=== PATIENT | male | born 1940 | race American Indian/Alaskan Native ===

== ENCOUNTER 2016-10-10 13:00 | Outpatient (CLI) | payer MEDICARE | END 2016-10-10 13:01 | disposition home or self-care (01) | LOC: WOUND 13:00 | PROVIDERS: ATTEND Surgery | DX: L97.512 Non-pressure chronic ulcer of other part of right foot with fat layer exposed (principal); L89.893 Pressure ulcer of other site, stage 3; S24.103D Unspecified injury at T7-T10 level of thoracic spinal cord, subsequent encounter; G83.9 Paralytic syndrome, unspecified; Z87.891 Personal history of nicotine dependence; X58.XXXD Exposure to other specified factors, subsequent encounter | CPT/HCPCS: 99215; G0463 ==

== ENCOUNTER 2016-10-17 12:59 | Outpatient (CLI) | payer MEDICARE | END 2016-10-17 13:00 | disposition home or self-care (01) | LOC: WOUND 12:59 | PROVIDERS: ATTEND Surgery | DX: L89.893 Pressure ulcer of other site, stage 3 (principal); G82.50 Quadriplegia, unspecified; Z87.891 Personal history of nicotine dependence | CPT/HCPCS: 99214; G0463 ==

== ENCOUNTER 2016-10-24 12:47 | Outpatient (CLI) | payer MEDICARE | END 2016-10-24 12:48 | disposition home or self-care (01) | LOC: WOUND 12:47 | PROVIDERS: ATTEND Internal Medicine | DX: L89.893 Pressure ulcer of other site, stage 3 (principal); S24.103D Unspecified injury at T7-T10 level of thoracic spinal cord, subsequent encounter; G83.9 Paralytic syndrome, unspecified; Z87.891 Personal history of nicotine dependence; X58.XXXD Exposure to other specified factors, subsequent encounter ==

== ENCOUNTER 2016-10-31 11:29 | Outpatient (CLI) | payer MEDICARE ==
[2016-10-31] MEDS ORDERED: XYLOCAINE TOPICAL 2% ONE (11:49)
[2016-10-31] MEDS ORDERED: XYLOCAINE TOPICAL 2% TP ONE (14:58)
== END 2016-10-31 11:30 | disposition home or self-care (01) ==
LOC: WOUND 11:29
PROVIDERS: ATTEND Surgery
DX: L89.893 Pressure ulcer of other site, stage 3 (principal); Z87.891 Personal history of nicotine dependence

== ENCOUNTER 2016-11-07 10:26 | Outpatient (CLI) | payer MEDICARE | END 2016-11-07 10:27 | disposition home or self-care (01) | LOC: WOUND 10:26 | PROVIDERS: ATTEND Surgery | DX: L89.893 Pressure ulcer of other site, stage 3 (principal); Z87.891 Personal history of nicotine dependence ==

== ENCOUNTER 2016-11-14 11:22 | Outpatient (CLI) | payer MEDICARE ==
[2016-11-14] MEDS ORDERED: SILVER NITRATE TP ONE ×2 (12:05→13:37)
== END 2016-11-14 11:23 | disposition home or self-care (01) ==
LOC: WOUND 11:22
PROVIDERS: ATTEND Surgery
DX: S24.103D Unspecified injury at T7-T10 level of thoracic spinal cord, subsequent encounter (principal); L97.511 Non-pressure chronic ulcer of other part of right foot limited to breakdown of skin; L89.013 Pressure ulcer of right elbow, stage 3; L89.892 Pressure ulcer of other site, stage 2; Z87.891 Personal history of nicotine dependence; X58.XXXD Exposure to other specified factors, subsequent encounter

== ENCOUNTER 2016-11-21 09:59 | Outpatient (CLI) | payer MEDICARE ==
[2016-11-21] MEDS ORDERED: SILVER NITRATE TP ONE (15:30)
== END 2016-11-21 10:00 | disposition home or self-care (01) ==
LOC: WOUND 09:59
PROVIDERS: ATTEND Surgery
DX: L97.512 Non-pressure chronic ulcer of other part of right foot with fat layer exposed (principal); L89.893 Pressure ulcer of other site, stage 3; Z87.891 Personal history of nicotine dependence

== ENCOUNTER 2016-11-28 09:49 | Outpatient (CLI) | payer MEDICARE | END 2016-11-28 09:50 | disposition home or self-care (01) | LOC: WOUND 09:49 | PROVIDERS: ATTEND Internal Medicine | DX: L89.893 Pressure ulcer of other site, stage 3 (principal); L89.892 Pressure ulcer of other site, stage 2; G83.9 Paralytic syndrome, unspecified; Z87.891 Personal history of nicotine dependence ==

== ENCOUNTER 2016-12-02 20:47 | Emergency (ER) | payer MEDICARE ==
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
--- NOTE | 2016-12-02 23:55 | Cat Scan Report ---
FINAL REPORT PROCEDURE: CT NECK WO CON TECHNIQUE: Computerized tomography of the soft tissue neck was performed without contrast material. This study is performed without intravascular contrast material and its sensitivity for pathology, including neoplasms, inflammation, abscess, free fluid, thrombosis, and arterial dissection, is reduced compared with a contrast enhanced study. HISTORY: ? foreign body COMPARISON: No prior studies are available for comparison. FINDINGS: Skull base: Visualized portions are normal. Paranasal sinuses: Visualized portions are normal. Nasopharynx: Normal. Oral cavity: Normal. Epiglottis/vallecula: The level of the epiglottis there is area of mixed attenuation in the posterior airway, a food bolus in this region is suspected. This does not cause complete occlusion of the airway. No other evidence of radiopacity within the airway. The epiglottis is normal. No soft tissue swelling is noted.. Larynx/pyriform sinuses: Normal. Thyroid gland: Normal. Lymph nodes: None enlarged. Salivary glands: Normal. Upper thorax: Normal. There has been previous surgery in the cervical spine posteriorly. There is significant spur formation off the posterior vertebral bodies from the C3 through the C7 vertebral levels. Significant spinal canal stenosis is identified at the C3-4, C4-5 and C5-6 levels. IMPRESSION: There is an area of mixed attenuation in the posterior airway in the hypopharynx at the level of the epiglottis. A fluid bolus in this region is suspected by history. This does not cause occlusion of the airway. There is no other evidence of radiopacity within the airway. The epiglottis is normal. This fluid bolus is at the upper opening of the esophagus but is not completely within the esophagus on this study. Continued monitoring of this patient for possible resolution or airway complication would be appropriate. The remainder of the study is normal for age. There are significant degenerative changes of the cervical spine with significant spinal canal stenosis at the C 3- 4, C4-5 and C5-6 levels. The above results are discussed with the patient's ER physician at the time of dictation 2246 central standard time on 12/02/2016
--- NOTE | 2016-12-03 00:02 | Cat Scan Report ---
FINAL REPORT PROCEDURE: CT CHEST WO CON TECHNIQUE: Computerized axial tomography of the chest was performed without contrast material. This study is performed without intravenous contrast and the sensitivity for pathology, including neoplasms, adenopathy, abscess, pulmonary embolism and aortic dissection, is reduced. HISTORY: ? foreign body, chills ? pna COMPARISON: No prior studies are available for comparison. TECHNICAL QUALITY: Satisfactory. FINDINGS: Heart and pericardium: Normal. Thoracic aorta: Minimal atherosclerosis of the aorta. No aneurysm.. Pulmonary vasculature: Normal. Lymph nodes: No enlarged thoracic lymph nodes. Lungs: Mild COPD with slight fibrosis in the lower lungs. No consolidation, effusion or pneumothorax. The central airway is patent.. Pleural space: No effusion, thickening, or pneumothorax. Musculoskeletal structures: No significant abnormality. Upper abdominal structures: Slight thinning of the renal cortices bilaterally. Suspected cysts in the renal cortex, this is not fully evaluated on this study.. IMPRESSION: Mild COPD with fibrosis. No consolidation, effusion or pneumothorax..
[2016-12-03 00:16] LABS: Basophils % (Auto) 0.3 % (0.0-1.8); Eosinophils % (Auto) 0.4 % (0.0-4.3); Hematocrit 41.7 % (35.5-45.6); Hemoglobin 13.5 gm/dl (11.8-15.2); Mean Corpuscular HGB Conc 32 % (32-34); Mean Corpuscular Hemoglobin 29 pg (28-32); Mean Corpuscular Volume 88 fl (84-94); Platelet Count 295 K/mm3 (140-440); Red Blood Count 4.72 M/mm3 (3.65-5.03); Red Cell Distribution Width 14.1 % (13.2-15.2); White Blood Count 12.7 K/mm3 (4.5-11.0)
[2016-12-03 00:23] LABS: Anion Gap 18 mmol/L; BUN/Creatinine Ratio 22.85; Blood Urea Nitrogen 16 mg/dL (9-20); Calcium 9.1 mg/dL (8.4-10.2); Carbon Dioxide 22 mmol/L (22-30); Chloride 107.5 mmol/L (98-107); Creatine Kinase 112 units/L (55-170); Glucose 92 mg/dL (75-100); Potassium 4.6 mmol/L (3.6-5.0); Sodium 143 mmol/L (137-145)
[2016-12-03 00:47] VITALS: BP 173/73
[2016-12-03 01:16] LABS: Bacteria,Urine 1+ /HPF (Negative); Bilirubin,Urine NEG (Negative); Blood,Urine NEG (Negative); Ketones,Urine NEG (Negative); Leukocyte Esterase,Urine LG (Negative); Mucus,Urine FEW /HPF; Nitrite,Urine NEG (Negative); Protein,Urine <15 mg/dL mg/dL (Negative); Urobilinogen,Urine < 2.0 mg/dL (<2.0)
== END 2016-12-03 01:40 | disposition short-term general hospital (02) ==
LOC: ED 20:47
DX: T18.8XXA Foreign body in other parts of alimentary tract, initial encounter (principal); Z87.891 Personal history of nicotine dependence; Z88.2 Allergy status to sulfonamides; Z88.8 Allergy status to other drugs, medicaments and biological substances; X58.XXXA Exposure to other specified factors, initial encounter; Y93.89 Activity, other specified; Y99.8 Other external cause status; Y92.89 Other specified places as the place of occurrence of the external cause
CPT/HCPCS: 36415; 70490; 71250; 80048; 81001; 82550; 85025; 87086

== ENCOUNTER 2016-12-05 11:10 | Outpatient (CLI) | payer MEDICARE ==
[2016-12-05] MEDS ORDERED: SILVER NITRATE TP ONE ×2 (12:08→16:00)
== END 2016-12-05 11:11 | disposition home or self-care (01) ==
LOC: WOUND 11:10
PROVIDERS: ATTEND Surgery
DX: L89.893 Pressure ulcer of other site, stage 3 (principal); L89.892 Pressure ulcer of other site, stage 2; Z87.891 Personal history of nicotine dependence

== ENCOUNTER 2016-12-26 10:37 | Outpatient (CLI) | payer MEDICARE | END 2016-12-26 10:38 | disposition home or self-care (01) | LOC: WOUND 10:37 | PROVIDERS: ATTEND Surgery | DX: L89.893 Pressure ulcer of other site, stage 3 (principal); L97.512 Non-pressure chronic ulcer of other part of right foot with fat layer exposed; S24.103D Unspecified injury at T7-T10 level of thoracic spinal cord, subsequent encounter; Z87.891 Personal history of nicotine dependence; X58.XXXD Exposure to other specified factors, subsequent encounter ==

== ENCOUNTER 2017-01-09 11:25 | Outpatient (CLI) | payer MEDICARE | END 2017-01-09 11:26 | disposition home or self-care (01) | LOC: WOUND 11:25 | PROVIDERS: ATTEND Surgery | DX: L97.512 Non-pressure chronic ulcer of other part of right foot with fat layer exposed (principal); L89.893 Pressure ulcer of other site, stage 3; Z87.891 Personal history of nicotine dependence ==

== ENCOUNTER 2017-01-23 11:02 | Outpatient (CLI) | payer MEDICARE | END 2017-01-23 11:03 | disposition home or self-care (01) | LOC: WOUND 11:02 | PROVIDERS: ATTEND Surgery | DX: L89.893 Pressure ulcer of other site, stage 3 (principal); L97.512 Non-pressure chronic ulcer of other part of right foot with fat layer exposed; Z87.891 Personal history of nicotine dependence ==

== ENCOUNTER 2017-01-23 11:59 | Outpatient (CLI) | payer MEDICARE ==
--- NOTE | 2017-01-23 12:53 | XRay Report ---
Right foot: Wound. The bones are generally demineralized. The joints appear generally aligned. The fourth MP joint is not well-visualized and could be narrowed. No arthritic or destructive bone change is identified. The lateral and dorsal soft tissues appear to be mildly edematous. There is a bandage and possible soft tissue gas lateral to the proximal first phalanx. No foreign body noted. Impressions: 1. First digit ulcer/wound. 2. Osteoporosis with no evidence of osteomyelitis.
== END 2017-01-23 12:00 | disposition home or self-care (01) ==
LOC: XRAY 11:59
PROVIDERS: ATTEND Surgery
DX: L97.512 Non-pressure chronic ulcer of other part of right foot with fat layer exposed (principal); M81.0 Age-related osteoporosis without current pathological fracture; Z87.891 Personal history of nicotine dependence

== ENCOUNTER 2017-01-30 10:46 | Outpatient (CLI) | payer MEDICARE ==
[2017-01-30] MEDS ORDERED: SILVER NITRATE TP ONE ×2 (11:19→11:22)
== END 2017-01-30 10:47 | disposition home or self-care (01) ==
LOC: WOUND 10:46
PROVIDERS: ATTEND Surgery
DX: L89.893 Pressure ulcer of other site, stage 3 (principal); L97.512 Non-pressure chronic ulcer of other part of right foot with fat layer exposed; Z87.891 Personal history of nicotine dependence
CPT/HCPCS: 17250

== ENCOUNTER 2017-02-06 11:00 | Outpatient (CLI) | payer MEDICARE ==
[2017-02-06] MEDS ORDERED: SILVER NITRATE TP ONE ×2 (11:27→12:33)
== END 2017-02-06 11:01 | disposition home or self-care (01) ==
LOC: WOUND 11:00
PROVIDERS: ATTEND Surgery
DX: L97.512 Non-pressure chronic ulcer of other part of right foot with fat layer exposed (principal); L89.893 Pressure ulcer of other site, stage 3; G82.50 Quadriplegia, unspecified; Z87.891 Personal history of nicotine dependence
CPT/HCPCS: 17250; G0463

== ENCOUNTER 2017-02-13 11:01 | Outpatient (CLI) | payer MEDICARE | END 2017-02-13 11:02 | disposition home or self-care (01) | LOC: WOUND 11:01 | PROVIDERS: ATTEND Surgery | DX: L89.893 Pressure ulcer of other site, stage 3 (principal); G82.50 Quadriplegia, unspecified; Z87.891 Personal history of nicotine dependence | CPT/HCPCS: 99214; G0463 ==

== ENCOUNTER 2017-02-20 13:05 | Outpatient (CLI) | payer MEDICARE ==
[~2017-02-20 13:05] MED LIST: NACL ONE
== END 2017-02-20 13:06 | disposition home or self-care (01) ==
LOC: WOUND 13:05
PROVIDERS: ATTEND Surgery
DX: L89.893 Pressure ulcer of other site, stage 3 (principal); L97.512 Non-pressure chronic ulcer of other part of right foot with fat layer exposed; G82.50 Quadriplegia, unspecified; Z87.891 Personal history of nicotine dependence
CPT/HCPCS: 99214; G0463

== ENCOUNTER 2017-02-27 11:29 | Outpatient (CLI) | payer MEDICARE | END 2017-02-27 11:30 | disposition home or self-care (01) | LOC: WOUND 11:29 | PROVIDERS: ATTEND Surgery | DX: L97.512 Non-pressure chronic ulcer of other part of right foot with fat layer exposed (principal); L89.892 Pressure ulcer of other site, stage 2; M86.671 Other chronic osteomyelitis, right ankle and foot; Z87.891 Personal history of nicotine dependence ==

== ENCOUNTER 2017-03-05 10:43 | Outpatient (CLI) | payer MEDICARE ==
--- NOTE | 2017-03-05 11:24 | XRay Report ---
AP and lateral chest: Osteomyelitis. Left hemidiaphragm is slightly elevated. The lungs are clear. The heart is normal in size. No vascular congestion. The aorta is minimally tortuous. No significant bone pathology identified. Impression: No significant pathology identified.
== END 2017-03-05 10:44 | disposition home or self-care (01) ==
LOC: XRAY 10:43
PROVIDERS: ATTEND Surgery
DX: M86.8X8 Other osteomyelitis, other site (principal); J98.6 Disorders of diaphragm; Q25.46 Tortuous aortic arch
CPT/HCPCS: 71020

== ENCOUNTER 2017-03-06 09:27 | Outpatient (CLI) | payer MEDICARE ==
[2017-03-06] MEDS ORDERED: XYLOCAINE TOPICAL 2% ONE (09:58)
[2017-03-06] MEDS ORDERED: XYLOCAINE TOPICAL 2% TP ONE (10:12)
[2017-03-06] MEDS ORDERED: SILVER NITRATE TP ONE (10:51)
== END 2017-03-06 09:28 | disposition home or self-care (01) ==
LOC: WOUND 09:27
PROVIDERS: ATTEND Surgery
DX: L97.512 Non-pressure chronic ulcer of other part of right foot with fat layer exposed (principal); L97.822 Non-pressure chronic ulcer of other part of left lower leg with fat layer exposed; M86.671 Other chronic osteomyelitis, right ankle and foot; L89.893 Pressure ulcer of other site, stage 3; G82.50 Quadriplegia, unspecified; Z87.891 Personal history of nicotine dependence

== ENCOUNTER 2017-03-11 10:15 | Outpatient (CLI) | payer MEDICARE | END 2017-03-11 10:16 | disposition home or self-care (01) | LOC: WOUND 10:15 | PROVIDERS: ATTEND Internal Medicine | DX: L97.512 Non-pressure chronic ulcer of other part of right foot with fat layer exposed (principal); L97.822 Non-pressure chronic ulcer of other part of left lower leg with fat layer exposed; M86.671 Other chronic osteomyelitis, right ankle and foot; L89.893 Pressure ulcer of other site, stage 3; G82.50 Quadriplegia, unspecified; Z87.891 Personal history of nicotine dependence | CPT/HCPCS: G0277 ×2; 99183 ==

== ENCOUNTER 2017-03-12 09:38 | Outpatient (CLI) | payer MEDICARE | END 2017-03-12 09:39 | disposition home or self-care (01) | LOC: WOUND 09:38 | PROVIDERS: ATTEND Surgery | DX: L97.512 Non-pressure chronic ulcer of other part of right foot with fat layer exposed (principal); S24.103D Unspecified injury at T7-T10 level of thoracic spinal cord, subsequent encounter; L97.822 Non-pressure chronic ulcer of other part of left lower leg with fat layer exposed; M86.671 Other chronic osteomyelitis, right ankle and foot; G82.50 Quadriplegia, unspecified; Z87.891 Personal history of nicotine dependence; L89.893 Pressure ulcer of other site, stage 3 | CPT/HCPCS: 82962; G0277; 99183 ==

== ENCOUNTER 2017-03-13 10:07 | Outpatient (CLI) | payer MEDICARE | END 2017-03-13 10:08 | disposition home or self-care (01) | LOC: WOUND 10:07 | PROVIDERS: ATTEND Surgery | DX: E11.621 Type 2 diabetes mellitus with foot ulcer (principal); L97.512 Non-pressure chronic ulcer of other part of right foot with fat layer exposed; S24.103D Unspecified injury at T7-T10 level of thoracic spinal cord, subsequent encounter; G82.50 Quadriplegia, unspecified; Z87.891 Personal history of nicotine dependence; Z86.73 Personal history of transient ischemic attack (TIA), and cerebral infarction without residual deficits; X58.XXXD Exposure to other specified factors, subsequent encounter | CPT/HCPCS: G0277 ×2; 99183 ==

== ENCOUNTER 2017-03-15 10:12 | Outpatient (CLI) | payer MEDICARE | END 2017-03-15 10:13 | disposition home or self-care (01) | LOC: WOUND 10:12 | PROVIDERS: ATTEND Podiatrist | DX: E11.621 Type 2 diabetes mellitus with foot ulcer (principal); L97.512 Non-pressure chronic ulcer of other part of right foot with fat layer exposed; S24.103D Unspecified injury at T7-T10 level of thoracic spinal cord, subsequent encounter; G82.50 Quadriplegia, unspecified; Z87.891 Personal history of nicotine dependence; Z86.73 Personal history of transient ischemic attack (TIA), and cerebral infarction without residual deficits; X58.XXXD Exposure to other specified factors, subsequent encounter | CPT/HCPCS: G0277 ×2; 99183 ==

== ENCOUNTER 2017-03-18 10:07 | Outpatient (CLI) | payer MEDICARE | END 2017-03-18 10:08 | disposition home or self-care (01) | LOC: WOUND 10:07 | PROVIDERS: ATTEND Internal Medicine | DX: E11.621 Type 2 diabetes mellitus with foot ulcer (principal); L97.512 Non-pressure chronic ulcer of other part of right foot with fat layer exposed; S24.103D Unspecified injury at T7-T10 level of thoracic spinal cord, subsequent encounter; G82.50 Quadriplegia, unspecified; Z87.891 Personal history of nicotine dependence; Z86.73 Personal history of transient ischemic attack (TIA), and cerebral infarction without residual deficits; X58.XXXD Exposure to other specified factors, subsequent encounter | CPT/HCPCS: G0277 ×2; 99183 ==

== ENCOUNTER 2017-03-19 09:53 | Outpatient (CLI) | payer MEDICARE | END 2017-03-19 09:54 | disposition home or self-care (01) | LOC: WOUND 09:53 | PROVIDERS: ATTEND Surgery | DX: E11.621 Type 2 diabetes mellitus with foot ulcer (principal); L97.512 Non-pressure chronic ulcer of other part of right foot with fat layer exposed; S24.103D Unspecified injury at T7-T10 level of thoracic spinal cord, subsequent encounter; G82.50 Quadriplegia, unspecified; Z87.891 Personal history of nicotine dependence; Z86.73 Personal history of transient ischemic attack (TIA), and cerebral infarction without residual deficits; X58.XXXD Exposure to other specified factors, subsequent encounter | CPT/HCPCS: G0277 ×2; 99183 ==

== ENCOUNTER 2017-03-20 10:32 | Outpatient (CLI) | payer MEDICARE | END 2017-03-20 10:33 | disposition home or self-care (01) | LOC: WOUND 10:32 | PROVIDERS: ATTEND Surgery | DX: E11.621 Type 2 diabetes mellitus with foot ulcer (principal); L97.512 Non-pressure chronic ulcer of other part of right foot with fat layer exposed; L89.893 Pressure ulcer of other site, stage 3; G82.50 Quadriplegia, unspecified; Z87.891 Personal history of nicotine dependence | CPT/HCPCS: 11042; G0277; 99183 ==

== ENCOUNTER 2017-03-22 10:23 | Outpatient (CLI) | payer MEDICARE ==
[~2017-03-22 10:23] MED LIST changes: -NACL ONE; +XYLOCAINE TOPICAL 4% TP ONE
== END 2017-03-22 10:24 | disposition home or self-care (01) ==
LOC: WOUND 10:23
PROVIDERS: ATTEND Podiatrist
DX: E11.621 Type 2 diabetes mellitus with foot ulcer (principal); L97.512 Non-pressure chronic ulcer of other part of right foot with fat layer exposed; G82.50 Quadriplegia, unspecified; Z87.891 Personal history of nicotine dependence
CPT/HCPCS: G0277 ×2; 99183

== ENCOUNTER 2017-03-25 10:21 | Outpatient (CLI) | payer MEDICARE | END 2017-03-25 10:22 | disposition home or self-care (01) | LOC: WOUND 10:21 | PROVIDERS: ATTEND Internal Medicine | DX: E11.621 Type 2 diabetes mellitus with foot ulcer (principal); L97.512 Non-pressure chronic ulcer of other part of right foot with fat layer exposed; G82.50 Quadriplegia, unspecified; Z87.891 Personal history of nicotine dependence | CPT/HCPCS: G0277 ×2; 99183 ==

== ENCOUNTER 2017-03-27 11:25 | Outpatient (CLI) | payer MEDICARE | END 2017-03-27 11:26 | disposition home or self-care (01) | LOC: WOUND 11:25 | PROVIDERS: ATTEND Surgery | DX: E11.621 Type 2 diabetes mellitus with foot ulcer (principal); L97.512 Non-pressure chronic ulcer of other part of right foot with fat layer exposed; G82.50 Quadriplegia, unspecified; Z87.891 Personal history of nicotine dependence | CPT/HCPCS: G0277 ×2; 99183 ==

== ENCOUNTER 2017-03-28 10:29 | Outpatient (CLI) | payer MEDICARE | END 2017-03-28 10:30 | disposition home or self-care (01) | LOC: WOUND 10:29 | PROVIDERS: ATTEND Nurse Practitioner | DX: E11.621 Type 2 diabetes mellitus with foot ulcer (principal); L97.512 Non-pressure chronic ulcer of other part of right foot with fat layer exposed; G82.50 Quadriplegia, unspecified; Z87.891 Personal history of nicotine dependence | CPT/HCPCS: G0277 ×2; 99183 ==

== ENCOUNTER 2017-04-01 10:33 | Outpatient (CLI) | payer MEDICARE | END 2017-04-01 10:34 | disposition home or self-care (01) | LOC: WOUND 10:33 | PROVIDERS: ATTEND Internal Medicine | DX: S24.103D Unspecified injury at T7-T10 level of thoracic spinal cord, subsequent encounter (principal); L97.512 Non-pressure chronic ulcer of other part of right foot with fat layer exposed; L97.822 Non-pressure chronic ulcer of other part of left lower leg with fat layer exposed; M86.671 Other chronic osteomyelitis, right ankle and foot; Z87.891 Personal history of nicotine dependence; X58.XXXD Exposure to other specified factors, subsequent encounter | CPT/HCPCS: G0277 ×2; 99183 ==

== ENCOUNTER 2017-04-02 10:01 | Outpatient (CLI) | payer MEDICARE | END 2017-04-02 10:02 | disposition home or self-care (01) | LOC: WOUND 10:01 | PROVIDERS: ATTEND Surgery | DX: E11.621 Type 2 diabetes mellitus with foot ulcer (principal); L97.512 Non-pressure chronic ulcer of other part of right foot with fat layer exposed; G82.50 Quadriplegia, unspecified; Z87.891 Personal history of nicotine dependence | CPT/HCPCS: G0277 ×2; 99183 ==

== ENCOUNTER 2017-04-03 10:13 | Outpatient (CLI) | payer MEDICARE ==
[2017-04-03] MEDS ORDERED: SILVER NITRATE TP ONE ×2 (13:28→13:42)
== END 2017-04-03 10:14 | disposition home or self-care (01) ==
LOC: WOUND 10:13
PROVIDERS: ATTEND Surgery
DX: L97.512 Non-pressure chronic ulcer of other part of right foot with fat layer exposed (principal); L97.822 Non-pressure chronic ulcer of other part of left lower leg with fat layer exposed; M86.671 Other chronic osteomyelitis, right ankle and foot; L89.893 Pressure ulcer of other site, stage 3; G82.50 Quadriplegia, unspecified; Z87.891 Personal history of nicotine dependence
CPT/HCPCS: 11042; G0277; 99183

== ENCOUNTER 2017-04-04 09:52 | Outpatient (CLI) | payer MEDICARE | END 2017-04-04 09:53 | disposition home or self-care (01) | LOC: WOUND 09:52 | PROVIDERS: ATTEND Surgery | DX: E11.622 Type 2 diabetes mellitus with other skin ulcer (principal); L97.512 Non-pressure chronic ulcer of other part of right foot with fat layer exposed; E11.69 Type 2 diabetes mellitus with other specified complication; M86.671 Other chronic osteomyelitis, right ankle and foot; G82.50 Quadriplegia, unspecified; Z87.891 Personal history of nicotine dependence | CPT/HCPCS: G0277 ×2; 99183 ==

== ENCOUNTER 2017-04-05 10:50 | Outpatient (CLI) | payer MEDICARE | END 2017-04-05 10:51 | disposition home or self-care (01) | LOC: WOUND 10:50 | PROVIDERS: ATTEND Podiatrist | DX: E11.622 Type 2 diabetes mellitus with other skin ulcer (principal); L97.512 Non-pressure chronic ulcer of other part of right foot with fat layer exposed; E11.69 Type 2 diabetes mellitus with other specified complication; M86.671 Other chronic osteomyelitis, right ankle and foot; G82.50 Quadriplegia, unspecified; Z87.891 Personal history of nicotine dependence | CPT/HCPCS: G0277 ×2; 99183 ==

== ENCOUNTER 2017-04-09 10:06 | Outpatient (CLI) | payer MEDICARE | END 2017-04-09 10:07 | disposition home or self-care (01) | LOC: WOUND 10:06 | PROVIDERS: ATTEND Surgery | DX: E11.621 Type 2 diabetes mellitus with foot ulcer (principal); E11.622 Type 2 diabetes mellitus with other skin ulcer; L97.512 Non-pressure chronic ulcer of other part of right foot with fat layer exposed; L97.822 Non-pressure chronic ulcer of other part of left lower leg with fat layer exposed; E11.69 Type 2 diabetes mellitus with other specified complication; M86.671 Other chronic osteomyelitis, right ankle and foot; G82.50 Quadriplegia, unspecified; Z87.891 Personal history of nicotine dependence | CPT/HCPCS: G0277 ×2; 99183 ==

== ENCOUNTER 2017-04-10 10:02 | Outpatient (CLI) | payer MEDICARE | END 2017-04-10 10:03 | disposition home or self-care (01) | LOC: WOUND 10:02 | PROVIDERS: ATTEND Surgery | DX: E11.621 Type 2 diabetes mellitus with foot ulcer (principal); L97.512 Non-pressure chronic ulcer of other part of right foot with fat layer exposed; E11.622 Type 2 diabetes mellitus with other skin ulcer; L97.822 Non-pressure chronic ulcer of other part of left lower leg with fat layer exposed; E11.69 Type 2 diabetes mellitus with other specified complication; M86.671 Other chronic osteomyelitis, right ankle and foot; G82.50 Quadriplegia, unspecified; Z87.891 Personal history of nicotine dependence | CPT/HCPCS: G0277 ×2; 99183 ==

== ENCOUNTER 2017-04-11 10:05 | Outpatient (CLI) | payer MEDICARE | END 2017-04-11 10:06 | disposition home or self-care (01) | LOC: WOUND 10:05 | PROVIDERS: ATTEND Nurse Practitioner | DX: E11.621 Type 2 diabetes mellitus with foot ulcer (principal); L97.512 Non-pressure chronic ulcer of other part of right foot with fat layer exposed; E11.622 Type 2 diabetes mellitus with other skin ulcer; L97.822 Non-pressure chronic ulcer of other part of left lower leg with fat layer exposed; E11.69 Type 2 diabetes mellitus with other specified complication; M86.671 Other chronic osteomyelitis, right ankle and foot; G82.50 Quadriplegia, unspecified; Z87.891 Personal history of nicotine dependence | CPT/HCPCS: G0277 ×2; 99183 ==

== ENCOUNTER 2017-04-12 10:18 | Outpatient (CLI) | payer MEDICARE | END 2017-04-12 10:19 | disposition home or self-care (01) | LOC: WOUND 10:18 | PROVIDERS: ATTEND Podiatrist | DX: E11.621 Type 2 diabetes mellitus with foot ulcer (principal); L97.512 Non-pressure chronic ulcer of other part of right foot with fat layer exposed; E11.622 Type 2 diabetes mellitus with other skin ulcer; L97.822 Non-pressure chronic ulcer of other part of left lower leg with fat layer exposed; E11.69 Type 2 diabetes mellitus with other specified complication; M86.671 Other chronic osteomyelitis, right ankle and foot; G82.50 Quadriplegia, unspecified; Z87.891 Personal history of nicotine dependence | CPT/HCPCS: G0277 ×2; 99183 ==

== ENCOUNTER 2017-04-15 10:35 | Outpatient (CLI) | payer MEDICARE | END 2017-04-15 10:36 | disposition home or self-care (01) | LOC: WOUND 10:35 | PROVIDERS: ATTEND Internal Medicine | DX: E11.621 Type 2 diabetes mellitus with foot ulcer (principal); L97.512 Non-pressure chronic ulcer of other part of right foot with fat layer exposed; E11.622 Type 2 diabetes mellitus with other skin ulcer; L97.822 Non-pressure chronic ulcer of other part of left lower leg with fat layer exposed; E11.69 Type 2 diabetes mellitus with other specified complication; M86.671 Other chronic osteomyelitis, right ankle and foot; G82.50 Quadriplegia, unspecified; Z87.891 Personal history of nicotine dependence | CPT/HCPCS: G0277 ×2; 99183 ==

== ENCOUNTER 2017-04-30 10:21 | Outpatient (CLI) | payer MEDICARE | END 2017-04-30 10:22 | disposition home or self-care (01) | LOC: WOUND 10:21 | PROVIDERS: ATTEND Surgery | DX: E11.622 Type 2 diabetes mellitus with other skin ulcer (principal); E11.621 Type 2 diabetes mellitus with foot ulcer; L97.512 Non-pressure chronic ulcer of other part of right foot with fat layer exposed; L97.822 Non-pressure chronic ulcer of other part of left lower leg with fat layer exposed; E11.69 Type 2 diabetes mellitus with other specified complication; M86.671 Other chronic osteomyelitis, right ankle and foot; G82.50 Quadriplegia, unspecified; Z87.891 Personal history of nicotine dependence | CPT/HCPCS: G0277 ×2; 99183 ==

== ENCOUNTER 2017-05-02 09:52 | Outpatient (CLI) | payer MEDICARE | END 2017-05-02 09:53 | disposition home or self-care (01) | LOC: WOUND 09:52 | PROVIDERS: ATTEND Nurse Practitioner | DX: E11.621 Type 2 diabetes mellitus with foot ulcer (principal); L97.512 Non-pressure chronic ulcer of other part of right foot with fat layer exposed; E11.622 Type 2 diabetes mellitus with other skin ulcer; L97.822 Non-pressure chronic ulcer of other part of left lower leg with fat layer exposed; E11.69 Type 2 diabetes mellitus with other specified complication; M86.671 Other chronic osteomyelitis, right ankle and foot; G82.50 Quadriplegia, unspecified; Z87.891 Personal history of nicotine dependence | CPT/HCPCS: G0277 ×2; 99183 ==

== ENCOUNTER 2017-05-06 09:58 | Outpatient (CLI) | payer MEDICARE | END 2017-05-06 09:59 | disposition home or self-care (01) | LOC: WOUND 09:58 | PROVIDERS: ATTEND Internal Medicine | DX: E11.622 Type 2 diabetes mellitus with other skin ulcer (principal); E11.621 Type 2 diabetes mellitus with foot ulcer; L97.512 Non-pressure chronic ulcer of other part of right foot with fat layer exposed; L97.822 Non-pressure chronic ulcer of other part of left lower leg with fat layer exposed; E11.69 Type 2 diabetes mellitus with other specified complication; M86.671 Other chronic osteomyelitis, right ankle and foot; G82.50 Quadriplegia, unspecified; Z87.891 Personal history of nicotine dependence | CPT/HCPCS: G0277 ×2; 99183 ==

== ENCOUNTER 2017-05-07 10:03 | Outpatient (CLI) | payer MEDICARE | END 2017-05-07 10:04 | disposition home or self-care (01) | LOC: WOUND 10:03 | PROVIDERS: ATTEND Surgery | DX: E11.621 Type 2 diabetes mellitus with foot ulcer (principal); L97.512 Non-pressure chronic ulcer of other part of right foot with fat layer exposed; E11.622 Type 2 diabetes mellitus with other skin ulcer; L97.822 Non-pressure chronic ulcer of other part of left lower leg with fat layer exposed; E11.69 Type 2 diabetes mellitus with other specified complication; M86.671 Other chronic osteomyelitis, right ankle and foot; G82.50 Quadriplegia, unspecified; Z87.891 Personal history of nicotine dependence | CPT/HCPCS: G0277 ×2; 99183 ==

== ENCOUNTER 2017-05-08 10:29 | Outpatient (CLI) | payer MEDICARE | END 2017-05-08 10:30 | disposition home or self-care (01) | LOC: WOUND 10:29 | PROVIDERS: ATTEND Surgery | DX: E11.621 Type 2 diabetes mellitus with foot ulcer (principal); L97.512 Non-pressure chronic ulcer of other part of right foot with fat layer exposed; E11.622 Type 2 diabetes mellitus with other skin ulcer; L97.822 Non-pressure chronic ulcer of other part of left lower leg with fat layer exposed; E11.69 Type 2 diabetes mellitus with other specified complication; M86.671 Other chronic osteomyelitis, right ankle and foot; G82.50 Quadriplegia, unspecified; Z87.891 Personal history of nicotine dependence | CPT/HCPCS: G0277 ×2; 99183 ==

== ENCOUNTER 2017-05-13 09:57 | Outpatient (CLI) | payer MEDICARE | END 2017-05-13 09:58 | disposition home or self-care (01) | LOC: WOUND 09:57 | PROVIDERS: ATTEND Internal Medicine | DX: E11.622 Type 2 diabetes mellitus with other skin ulcer (principal); E11.621 Type 2 diabetes mellitus with foot ulcer; L97.512 Non-pressure chronic ulcer of other part of right foot with fat layer exposed; L97.822 Non-pressure chronic ulcer of other part of left lower leg with fat layer exposed; E11.69 Type 2 diabetes mellitus with other specified complication; M86.671 Other chronic osteomyelitis, right ankle and foot; G82.50 Quadriplegia, unspecified; Z87.891 Personal history of nicotine dependence | CPT/HCPCS: G0277 ×2; 99183 ==

== ENCOUNTER 2017-05-14 09:46 | Outpatient (CLI) | payer MEDICARE | END 2017-05-14 09:47 | disposition home or self-care (01) | LOC: WOUND 09:46 | PROVIDERS: ATTEND Surgery | DX: E11.621 Type 2 diabetes mellitus with foot ulcer (principal); L97.512 Non-pressure chronic ulcer of other part of right foot with fat layer exposed; E11.622 Type 2 diabetes mellitus with other skin ulcer; L97.822 Non-pressure chronic ulcer of other part of left lower leg with fat layer exposed; E11.69 Type 2 diabetes mellitus with other specified complication; M86.671 Other chronic osteomyelitis, right ankle and foot; G82.50 Quadriplegia, unspecified; Z87.891 Personal history of nicotine dependence | CPT/HCPCS: G0277 ×2; 99183 ==

== ENCOUNTER 2017-05-15 10:21 | Outpatient (CLI) | payer MEDICARE | END 2017-05-15 10:22 | disposition home or self-care (01) | LOC: WOUND 10:21 | PROVIDERS: ATTEND Surgery | DX: S24.103D Unspecified injury at T7-T10 level of thoracic spinal cord, subsequent encounter (principal); E11.621 Type 2 diabetes mellitus with foot ulcer; L97.512 Non-pressure chronic ulcer of other part of right foot with fat layer exposed; L97.822 Non-pressure chronic ulcer of other part of left lower leg with fat layer exposed; M86.671 Other chronic osteomyelitis, right ankle and foot; E11.622 Type 2 diabetes mellitus with other skin ulcer; E11.69 Type 2 diabetes mellitus with other specified complication; G82.50 Quadriplegia, unspecified; Z87.891 Personal history of nicotine dependence; X58.XXXD Exposure to other specified factors, subsequent encounter | CPT/HCPCS: G0277 ×2; 99183 ==

== ENCOUNTER 2017-05-16 09:56 | Outpatient (CLI) | payer MEDICARE | END 2017-05-16 09:57 | disposition home or self-care (01) | LOC: WOUND 09:56 | PROVIDERS: ATTEND Nurse Practitioner | DX: E11.622 Type 2 diabetes mellitus with other skin ulcer (principal); L97.822 Non-pressure chronic ulcer of other part of left lower leg with fat layer exposed; E11.621 Type 2 diabetes mellitus with foot ulcer; L97.512 Non-pressure chronic ulcer of other part of right foot with fat layer exposed; E11.69 Type 2 diabetes mellitus with other specified complication; M86.671 Other chronic osteomyelitis, right ankle and foot; Z87.891 Personal history of nicotine dependence | CPT/HCPCS: G0277 ×2; 99183 ==

== ENCOUNTER 2017-05-17 09:56 | Outpatient (CLI) | payer MEDICARE | END 2017-05-17 09:57 | disposition home or self-care (01) | LOC: WOUND 09:56 | PROVIDERS: ATTEND Podiatrist | DX: E11.622 Type 2 diabetes mellitus with other skin ulcer (principal); L97.822 Non-pressure chronic ulcer of other part of left lower leg with fat layer exposed; E11.621 Type 2 diabetes mellitus with foot ulcer; L97.512 Non-pressure chronic ulcer of other part of right foot with fat layer exposed; E11.69 Type 2 diabetes mellitus with other specified complication; M86.671 Other chronic osteomyelitis, right ankle and foot; G82.50 Quadriplegia, unspecified; Z87.891 Personal history of nicotine dependence | CPT/HCPCS: G0277 ×2; 99183 ==

== ENCOUNTER 2017-05-20 10:00 | Outpatient (CLI) | payer MEDICARE | END 2017-05-20 10:01 | disposition home or self-care (01) | LOC: WOUND 10:00 | PROVIDERS: ATTEND Surgery | DX: E11.622 Type 2 diabetes mellitus with other skin ulcer (principal); L97.512 Non-pressure chronic ulcer of other part of right foot with fat layer exposed; E11.621 Type 2 diabetes mellitus with foot ulcer; L97.822 Non-pressure chronic ulcer of other part of left lower leg with fat layer exposed; S24.103D Unspecified injury at T7-T10 level of thoracic spinal cord, subsequent encounter; M86.671 Other chronic osteomyelitis, right ankle and foot; Z87.891 Personal history of nicotine dependence; Y83.8 Other surgical procedures as the cause of abnormal reaction of the patient, or of later complication, without mention of misadventure at the time of the procedure | CPT/HCPCS: G0277 ×2; 99183 ==

== ENCOUNTER 2017-05-21 10:02 | Outpatient (CLI) | payer MEDICARE | END 2017-05-21 10:03 | disposition home or self-care (01) | LOC: WOUND 10:02 | PROVIDERS: ATTEND Surgery | DX: E11.621 Type 2 diabetes mellitus with foot ulcer (principal); L97.512 Non-pressure chronic ulcer of other part of right foot with fat layer exposed; E11.622 Type 2 diabetes mellitus with other skin ulcer; L97.822 Non-pressure chronic ulcer of other part of left lower leg with fat layer exposed; E11.69 Type 2 diabetes mellitus with other specified complication; M86.671 Other chronic osteomyelitis, right ankle and foot; G82.50 Quadriplegia, unspecified; Z87.891 Personal history of nicotine dependence | CPT/HCPCS: G0277 ×2; 99183 ==

== ENCOUNTER 2017-05-22 10:15 | Outpatient (CLI) | payer MEDICARE | END 2017-05-22 10:16 | disposition home or self-care (01) | LOC: WOUND 10:15 | PROVIDERS: ATTEND Surgery | DX: E11.622 Type 2 diabetes mellitus with other skin ulcer (principal); L97.822 Non-pressure chronic ulcer of other part of left lower leg with fat layer exposed; E11.621 Type 2 diabetes mellitus with foot ulcer; L97.512 Non-pressure chronic ulcer of other part of right foot with fat layer exposed; E11.69 Type 2 diabetes mellitus with other specified complication; M86.671 Other chronic osteomyelitis, right ankle and foot; G82.50 Quadriplegia, unspecified; Z87.891 Personal history of nicotine dependence | CPT/HCPCS: G0277 ×2; 99183 ==

== ENCOUNTER 2017-05-23 08:13 | Outpatient (CLI) | payer MEDICARE | END 2017-05-23 08:14 | disposition home or self-care (01) | LOC: WOUND 08:13 | PROVIDERS: ATTEND Podiatrist | DX: E11.622 Type 2 diabetes mellitus with other skin ulcer (principal); L97.822 Non-pressure chronic ulcer of other part of left lower leg with fat layer exposed; E11.621 Type 2 diabetes mellitus with foot ulcer; L97.512 Non-pressure chronic ulcer of other part of right foot with fat layer exposed; E11.69 Type 2 diabetes mellitus with other specified complication; M86.671 Other chronic osteomyelitis, right ankle and foot; G82.50 Quadriplegia, unspecified; Z87.891 Personal history of nicotine dependence | CPT/HCPCS: 82962; G0277; 99183 ==

== ENCOUNTER 2017-05-23 10:21 | Outpatient (CLI) | payer MEDICARE | END 2017-05-23 10:22 | disposition home or self-care (01) | LOC: WOUND 10:21 | PROVIDERS: ATTEND Podiatrist | DX: E11.621 Type 2 diabetes mellitus with foot ulcer (principal); L97.512 Non-pressure chronic ulcer of other part of right foot with fat layer exposed; E11.622 Type 2 diabetes mellitus with other skin ulcer; L97.822 Non-pressure chronic ulcer of other part of left lower leg with fat layer exposed; E11.69 Type 2 diabetes mellitus with other specified complication; M86.671 Other chronic osteomyelitis, right ankle and foot; G82.50 Quadriplegia, unspecified; Z87.891 Personal history of nicotine dependence | CPT/HCPCS: G0277 ×2; 99183 ==

== ENCOUNTER 2017-05-27 10:32 | Outpatient (CLI) | payer MEDICARE ==
[2017-05-27] MEDS ORDERED: XYLOCAINE TOPICAL 4% TP ONE (11:01)
== END 2017-05-27 10:33 | disposition home or self-care (01) ==
LOC: WOUND 10:32
PROVIDERS: ATTEND Internal Medicine
DX: E11.621 Type 2 diabetes mellitus with foot ulcer (principal); L97.512 Non-pressure chronic ulcer of other part of right foot with fat layer exposed; E11.622 Type 2 diabetes mellitus with other skin ulcer; L97.822 Non-pressure chronic ulcer of other part of left lower leg with fat layer exposed; E11.69 Type 2 diabetes mellitus with other specified complication; M86.671 Other chronic osteomyelitis, right ankle and foot; G82.50 Quadriplegia, unspecified; Z87.891 Personal history of nicotine dependence
CPT/HCPCS: G0277 ×2; 99183

== ENCOUNTER 2017-05-28 14:58 | Outpatient (CLI) | payer MEDICARE | END 2017-05-28 14:59 | disposition home or self-care (01) | LOC: WOUND 14:58 | PROVIDERS: ATTEND Surgery | DX: E11.621 Type 2 diabetes mellitus with foot ulcer (principal); L97.512 Non-pressure chronic ulcer of other part of right foot with fat layer exposed; E11.622 Type 2 diabetes mellitus with other skin ulcer; L97.822 Non-pressure chronic ulcer of other part of left lower leg with fat layer exposed; E11.69 Type 2 diabetes mellitus with other specified complication; M86.671 Other chronic osteomyelitis, right ankle and foot; G82.50 Quadriplegia, unspecified; Z87.891 Personal history of nicotine dependence | CPT/HCPCS: G0277 ×2; 99183 ==

== ENCOUNTER 2017-05-29 10:10 | Outpatient (CLI) | payer MEDICARE | END 2017-05-29 10:11 | disposition home or self-care (01) | LOC: WOUND 10:10 | PROVIDERS: ATTEND Surgery | DX: E11.621 Type 2 diabetes mellitus with foot ulcer (principal); L97.512 Non-pressure chronic ulcer of other part of right foot with fat layer exposed; E11.622 Type 2 diabetes mellitus with other skin ulcer; L97.822 Non-pressure chronic ulcer of other part of left lower leg with fat layer exposed; E11.69 Type 2 diabetes mellitus with other specified complication; M86.671 Other chronic osteomyelitis, right ankle and foot; Z87.891 Personal history of nicotine dependence | CPT/HCPCS: G0277 ×2; 99183 ==

== ENCOUNTER 2017-05-31 10:05 | Outpatient (CLI) | payer MEDICARE | END 2017-05-31 10:06 | disposition home or self-care (01) | LOC: WOUND 10:05 | PROVIDERS: ATTEND Podiatrist | DX: E11.621 Type 2 diabetes mellitus with foot ulcer (principal); L97.512 Non-pressure chronic ulcer of other part of right foot with fat layer exposed; L89.899 Pressure ulcer of other site, unspecified stage; E11.622 Type 2 diabetes mellitus with other skin ulcer; L97.822 Non-pressure chronic ulcer of other part of left lower leg with fat layer exposed; E11.69 Type 2 diabetes mellitus with other specified complication; M86.671 Other chronic osteomyelitis, right ankle and foot; Z87.891 Personal history of nicotine dependence; G82.50 Quadriplegia, unspecified | CPT/HCPCS: G0277 ×2; 99183 ==

== ENCOUNTER 2017-06-03 10:05 | Outpatient (CLI) | payer MEDICARE | END 2017-06-03 10:06 | disposition home or self-care (01) | LOC: WOUND 10:05 | PROVIDERS: ATTEND Internal Medicine | DX: E11.621 Type 2 diabetes mellitus with foot ulcer (principal); L97.512 Non-pressure chronic ulcer of other part of right foot with fat layer exposed; E11.622 Type 2 diabetes mellitus with other skin ulcer; L97.822 Non-pressure chronic ulcer of other part of left lower leg with fat layer exposed; E11.69 Type 2 diabetes mellitus with other specified complication; M86.671 Other chronic osteomyelitis, right ankle and foot; G82.50 Quadriplegia, unspecified; Z87.891 Personal history of nicotine dependence | CPT/HCPCS: G0277 ×2; 99183 ==

== ENCOUNTER 2017-06-11 09:26 | Outpatient (CLI) | payer MEDICARE | END 2017-06-11 09:27 | disposition home or self-care (01) | LOC: WOUND 09:26 | PROVIDERS: ATTEND Surgery | DX: E11.621 Type 2 diabetes mellitus with foot ulcer (principal); L97.512 Non-pressure chronic ulcer of other part of right foot with fat layer exposed; E11.622 Type 2 diabetes mellitus with other skin ulcer; L97.822 Non-pressure chronic ulcer of other part of left lower leg with fat layer exposed; E11.69 Type 2 diabetes mellitus with other specified complication; M86.671 Other chronic osteomyelitis, right ankle and foot; G82.50 Quadriplegia, unspecified; Z87.891 Personal history of nicotine dependence | CPT/HCPCS: G0277 ×2; 99183 ==

== ENCOUNTER 2017-06-13 09:47 | Outpatient (CLI) | payer MEDICARE | END 2017-06-13 09:48 | disposition home or self-care (01) | LOC: WOUND 09:47 | PROVIDERS: ATTEND Nurse Practitioner | DX: E11.622 Type 2 diabetes mellitus with other skin ulcer (principal); L97.822 Non-pressure chronic ulcer of other part of left lower leg with fat layer exposed; E11.621 Type 2 diabetes mellitus with foot ulcer; L97.512 Non-pressure chronic ulcer of other part of right foot with fat layer exposed; E11.69 Type 2 diabetes mellitus with other specified complication; M86.671 Other chronic osteomyelitis, right ankle and foot; G82.50 Quadriplegia, unspecified; Z87.891 Personal history of nicotine dependence | CPT/HCPCS: G0277 ×2; 99183 ==

== ENCOUNTER 2017-06-14 10:13 | Outpatient (CLI) | payer MEDICARE | END 2017-06-14 10:14 | disposition home or self-care (01) | LOC: WOUND 10:13 | PROVIDERS: ATTEND Podiatrist | DX: E11.621 Type 2 diabetes mellitus with foot ulcer (principal); L97.512 Non-pressure chronic ulcer of other part of right foot with fat layer exposed; E11.622 Type 2 diabetes mellitus with other skin ulcer; L97.822 Non-pressure chronic ulcer of other part of left lower leg with fat layer exposed; E11.69 Type 2 diabetes mellitus with other specified complication; M86.671 Other chronic osteomyelitis, right ankle and foot; G82.50 Quadriplegia, unspecified; Z87.891 Personal history of nicotine dependence | CPT/HCPCS: G0277 ×2; 99183 ==

== ENCOUNTER 2017-07-12 11:06 | Outpatient (CLI) | payer MEDICARE | END 2017-07-12 11:07 | disposition home or self-care (01) | LOC: WOUND 11:06 | PROVIDERS: ATTEND Podiatrist | DX: L97.822 Non-pressure chronic ulcer of other part of left lower leg with fat layer exposed (principal); G82.50 Quadriplegia, unspecified; L89.893 Pressure ulcer of other site, stage 3; Z87.891 Personal history of nicotine dependence ==

== ENCOUNTER 2017-07-19 10:37 | Outpatient (CLI) | payer MEDICARE | END 2017-07-19 10:38 | disposition home or self-care (01) | LOC: WOUND 10:37 | PROVIDERS: ATTEND Internal Medicine | DX: L97.822 Non-pressure chronic ulcer of other part of left lower leg with fat layer exposed (principal); G82.50 Quadriplegia, unspecified; L89.893 Pressure ulcer of other site, stage 3; S24.103D Unspecified injury at T7-T10 level of thoracic spinal cord, subsequent encounter; Z87.891 Personal history of nicotine dependence; X58.XXXD Exposure to other specified factors, subsequent encounter ==

== ENCOUNTER 2017-07-26 11:22 | Outpatient (CLI) | payer MEDICARE | END 2017-07-26 11:23 | disposition home or self-care (01) | LOC: WOUND 11:22 | PROVIDERS: ATTEND Podiatrist | DX: L97.822 Non-pressure chronic ulcer of other part of left lower leg with fat layer exposed (principal); G82.50 Quadriplegia, unspecified; Z87.891 Personal history of nicotine dependence ==

== ENCOUNTER 2017-11-04 11:31 | Outpatient (CLI) | payer MEDICARE | END 2017-11-04 11:32 | disposition home or self-care (01) | LOC: WOUND 11:31 | PROVIDERS: ATTEND Obstetrics & Gynecology Gynecologic Oncology | DX: L89.223 Pressure ulcer of left hip, stage 3 (principal); L89.893 Pressure ulcer of other site, stage 3; L97.822 Non-pressure chronic ulcer of other part of left lower leg with fat layer exposed; G82.50 Quadriplegia, unspecified; Z87.891 Personal history of nicotine dependence | CPT/HCPCS: 99213; G0463 ==

== ENCOUNTER 2018-03-03 13:00 | Outpatient (CLI) | payer MEDICARE ==
[2018-03-03] MEDS ORDERED: SILVER NITRATE TP ONE ×2 (13:43→15:58)
== END 2018-03-03 13:01 | disposition home or self-care (01) ==
LOC: WOUND 13:00
PROVIDERS: ATTEND Surgery
DX: L89.223 Pressure ulcer of left hip, stage 3 (principal); L89.892 Pressure ulcer of other site, stage 2; L97.822 Non-pressure chronic ulcer of other part of left lower leg with fat layer exposed; G82.50 Quadriplegia, unspecified; Z87.891 Personal history of nicotine dependence
CPT/HCPCS: 11042; 11045; G0463; 99215